=== PATIENT | female | born 1945 | race Caucasian/White ===

== ENCOUNTER 2016-02-21 17:51 | Emergency (ER) | payer OTHER, BC ==
[2016-02-21 18:12] VITALS: BP 154/92; PULSE 58; TEMP 97.7; BMI 34.3
--- NOTE | 2016-02-21 18:33 | PDOC ---
[id number] No Limitations - History of Present Illness Initial Comments: 02/21/16 18:33 The patient is a 70 year old female, with a significant past medical history of HTN, hypercholesterolemia, carpal tunnel syndrome, and thyroid disease, who presents to the emergency department with a left hand laceration, occurring today. Patient reports the injury occurred cutting her hand on a kitchen knife. She reports not having a tetanus shot in over 20 years. She denies any numbness and tingling that is different from her baseline. She denies chest pain and shortness of breath. She denies fever, chills, headache and dizziness. She denies nausea, vomit, diarrhea and constipation. She denies dysuria, frequency, urgency and hematuria. Allergies: Penicillin Social history: denies EtOH use, tobacco use, and drug use. <Tyson Stein - Last Filed: 02/21/16 18:33> - History of Present Illness Initial Comments: 03/12/16 08:20 There were no sensory or motor deficits distal to the laceration. There was full tendon function in all 5 digits. <Darin Arevalo - Last Filed: 03/12/16 08:21> - General Chief Complaint: Laceration Stated Complaint: LACERATION Time Seen by Provider: 02/21/16 17:59 Past History <Tyson Stein - Last Filed: 02/21/16 18:33> - Past Medical History Anemia: No Asthma: No Cancer: No Cardiac Disorders: No CVA: No COPD: No CHF: No Dementia: No Diabetes: No Dialysis: No GI Disorders: No Disorders: No HTN: Yes (DX 2005) Hypercholesterolemia: Yes (DX 2005) HIV: No Kidney Stones: No Liver Disease: No Seizures: No Thyroid Disease: Yes (HYPOTHYROIDISM) - Surgical History Abdominal Surgery: No Appendectomy: No Cardiac Surgery: No Cholecystectomy: No Lung Surgery: No Neurologic Surgery: No Orthopedic Surgery: Yes (TRIGGER FINGER 2015-LEFT RING FINGER) - Immunization History Immunization Up to Date: No - Psycho/Social/Smoking Cessation Hx Anxiety: No Suicidal Ideation: No Smoking Status: No Smoking History: Former smoker Have you smoked in the past 12 months: No Number of Cigarettes Smoked Daily: 20 If you are a former smoker, when did you quit?: 1995 Cigars Per Day: 0 Information on smoking cessation initiated: No Hx Alcohol Use: Yes (SOCIALLY) Drug/Substance Use Hx: No Substance Use Type: Alcohol Hx Substance Use Treatment: No <Darin Arevalo - Last Filed: 03/12/16 08:21> - Past Medical History Allergies/Adverse Reactions: Allergies Allergy/AdvReac Type Severity Reaction Status Date / Time latex Allergy Intermediate REDNESS OF Verified 02/21/16 18:02 SKIN penicillin G Allergy Unknown UNKNOWN Verified 02/21/16 18:02 egg AdvReac Mild STOMACH Verified 02/21/16 18:02 PAIN Lobster AdvReac Mild Abdominal Uncoded 02/21/16 18:02 pain Home Medications: Ambulatory Orders Aspirin [Aspir 81] 81 mg PO BIW 05/25/14 Lovastatin 40 mg PO HS 06/07/14 Biotin/Calcium Carbonate [Biotin 800 Mcg Tablet] 1 each PO DAILY tablet Cholecalciferol (Vitamin D3) [Vitamin D3] 5,000 unit PO DAILY tablet 01/28/15 Lactobacillus Acidophilus [Acidophilus] 1 each PO DAILY capsule 01/28/15 Multivitamin [Daily Multiple Vitamin] 1 each PO DAILY tablet 01/28/15 Atenolol [Tenormin] 50 mg PO HS 06/24/15 Levothyroxine [Synthroid -] 75 mcg PO DAILY 06/24/15 Review of Systems - Review of Systems Able to Perform ROS?: Yes Comments:: 02/21/16 18:33 CONSTITUTIONAL: Absent: fever, chills, diaphoresis, generalized weakness, malaise, loss of appetite HEENT: Absent: rhinorrhea, nasal congestion, throat pain, throat swelling, difficulty swallowing, mouth swelling, ear pain, eye pain, visual Changes CARDIOVASCULAR: Absent: chest pain, syncope, palpitations, irregular heart rate, lightheadedness , peripheral edema RESPIRATORY: Absent: cough, shortness of breath, dyspnea with exertion, orthopnea, wheezing, stridor, hemoptysis GASTROINTESTINAL: Absent: abdominal pain, abdominal distension, nausea, vomiting, diarrhea, constipation, melena, hematochezia GENITOURINARY: Absent: dysuria, frequency, urgency, hesitancy, hematuria, flank pain, genital pain MUSCULOSKELETAL: Present: Left hand laceration. Absent: myalgia, arthralgia, joint swelling SKIN: Absent: rash, itching, pallor HEMATOLOGIC/IMMUNOLOGIC: Absent: easy bleeding, easy bruising, lymphadenopathy, frequent infections ENDOCRINE: Absent: unexplained weight gain, unexplained weight loss, heat intolerance, cold intolerance NEUROLOGIC: Absent: headache, focal weakness or paresthesias, dizziness, unsteady gait, seizure, mental status changes, bladder or bowel incontinence PSYCHIATRIC: Absent: anxiety, depression, suicidal or homicidal ideation, hallucinations. <Tyson Stein - Last Filed: 02/21/16 18:33> *Physical Exam - Vital Signs Last Vital Signs Temp Pulse Resp BP Pulse Ox 97.7 F 58 L 16 154/92 99 02/21/16 17:55 02/21/16 17:55 02/21/16 17:55 02/21/16 17:55 02/21/16 17:55 - Physical Exam Comments: 02/21/16 18:34 GENERAL: Well-appearing, well-nourished. No apparent distress. HEENT: Normocephalic, atraumatic. PERRL, EOM intact. CARDIOVASCULAR: Normal S1, S2. Regular rate and rhythm. PULMONARY: Clear to auscultation bilaterally. ABDOMEN: Soft, non-distended, non-tender. EXTREMITIES: 2cm laceration over the dorsum of the left hand, first metacarpal. The laceration was superficial extending just through the subcutaneous tissue, but not penetrating the muscle. There was strong and full extension and flexion of the 3 joints against resistance. Capillary refill intact. No distal sensory deficits. SKIN: Warm, dry. No rash NEUROLOGICAL: No focal neurological deficits. <Tyson Stein - Last Filed: 02/21/16 18:33> - Vital Signs Last Vital Signs Temp Pulse Resp BP Pulse Ox 97.7 F 58 L 16 154/92 99 02/21/16 17:55 02/21/16 17:55 02/21/16 17:55 02/21/16 17:55 02/21/16 17:55 <Darin Arevalo - Last Filed: 03/12/16 08:21> Procedures - Laceration/Wound Repair Left Upper Dorsal Hand Wound Length: to 2.5 cm Wound Explored: clean Wound's Depth, Shape: superficial Irrigated w/ Saline: Yes Betadine Prep: Yes Anesthesia: 1% Lidocaine Wound Repaired With: Sutures Suture Size/Type: 4:0 Number of Sutures: 3 Progress: 02/21/16 18:36 Patient tolerated the procedure well. Basatrian applied after procedure. Wound care instruction given. Patient should remove sutures after 7 days. <Tyson Stein - Last Filed: 02/21/16 18:33> Progress Note - Progress Note Progress Note: Superficial laceration was anesthetized with 1% Xylocaine plain, scrubbed and irrigated with normal saline, and explored. The wound was superficial. There was no penetration to deep structures. Wound was closed with interrupted 4-0 nylon suture, bacitracin was applied, and a protective dressing was used. Wound care instructions were given to the patient and her . Follow-up for suture removal 7-10 days. Recheck immediately if there is sign of infection. Patient in no pain or other distress upon discharge in the company of her to follow-up as directed <Darin Arevalo - Last Filed: 03/12/16 08:21> *DC/Admit/Observation/Transfer - Attestations Scribe Attestion: 02/21/16 18:37 Documentation prepared by Tyson Stein, acting as medical billing clerk for Darin Hobson MD. <Tyson Stein - Last Filed: 02/21/16 18:33> - Discharge Dispostion Admit: No <Darin Arevalo - Last Filed: 03/12/16 08:21> Diagnosis at time of Disposition: Laceration of hand Qualifiers: Encounter type: initial encounter Laterality: left Qualified Code(s): S61.412A - Laceration without foreign body of left hand, initial encounter - Discharge Dispostion Disposition: HOME Condition at time of disposition: Stable - Patient Instructions Printed Discharge Instructions: DI for Laceration Repair Additional Instructions: Keep clean and dry. Elevate for 24 hours. Recheck immediately sign of infection. Sutures out in 7 days.
[2016-02-21] MEDS ORDERED: DIPHTH,PERTUSS(ACELL),TET 0.5 ML DISP.SYRIN IM ONE (18:37)
== END 2016-02-21 18:45 | disposition home or self-care (01) ==
LOC: FER 17:51
PROC: 3E0234Z Introduction of Serum, Toxoid and Vaccine into Muscle, Percutaneous Approach (ICD-10-PCS; principal; 2016-02-21)
PROC: 0HQGXZZ Repair Left Hand Skin, External Approach (ICD-10-PCS; 2016-02-21)
DX: S61.412A Laceration without foreign body of left hand, initial encounter (principal); W26.0XXA Contact with knife, initial encounter; Y93.G3 Activity, cooking and baking; Y92.000 Kitchen of unspecified non-institutional (private) residence as the place of occurrence of the external cause; Z87.891 Personal history of nicotine dependence; I10 Essential (primary) hypertension; E78.00 Pure hypercholesterolemia, unspecified; E03.9 Hypothyroidism, unspecified
CPT/HCPCS: 12001-25; 90471; 90715; 99282-25

== ENCOUNTER 2021-09-10 10:55 | Emergency (ER) | payer OTHER, BC ==
[2021-09-10 11:00] VITALS: BP 121/75; PULSE 60; RESP 18; TEMP 98.4; BMI 28.8
[2021-09-10] MEDS ORDERED: BEBTELOVIMAB (EUA) 175 MG/2 ML VIAL IVPUSH ONE (11:40)
== END 2021-09-10 14:12 | disposition home or self-care (01) ==
LOC: JCOVINFU 10:55
DX: U07.1 COVID-19 (principal)
CPT/HCPCS: 99284-25; M0222; Q0222